=== PATIENT | female | born 1945 | race Caucasian/White ===

== ENCOUNTER 2016-09-26 13:02 | Day surgery (SDC) | payer MEDICARE ==
[~2016-09-26] VITALS: Ht 175.3 cm; Wt 81.8 kg
[~2016-09-26 13:02] MED LIST: COLA100C3 PO; ESCI10TA PO; METH4PAK PO; METR28.4 TOPICAL; MIRA50TA PO; MONT10TA4 PO; REST0.05 EACH EYE; TAMO20TA6 PO; XARE20TA PO; [UNRECOGNIZED DRUG - CODE]; [UNRECOGNIZED DRUG - OTHER] PO
[2016-09-26 13:29] VITALS: BP 124/67; PULSE 76; RESP 20; TEMP 98.5; O2SAT 96
[2016-09-26 13:30] VITALS: BP 124/67; PULSE 76; RESP 20; TEMP 98.5; O2SAT 96
[2016-09-26 17:00] VITALS: BP 116/70; PULSE 72; RESP 16; TEMP 98.4; O2SAT 99
[2016-09-26] MEDS ORDERED: IOHEXOL 350 MG/ML 50 ML BTL (for RAD DIAG) ONE (17:07)
--- NOTE | 2016-09-26 17:27 | PD.RAD ---
Post Procedure Progress Note Pre Procedure Diagnosis: (1) Uropathy, obstructive Post Procedure Diagnosis: (1) Uropathy, obstructive Procedure Date: Sep 26, 2016 Supervising Radiologist: Dilip Guillory Proceduralist/Assist: Virginie Haider, RT(R)(), Cordell Raymundo RT(R)() Anesthesia: Local Plan of Activity Patient to Unit: ROPU Patient Condition: Good See PACS Report for procedural detail/treatment Drainage Procedure Procedure 1 Imaging Guidance: Fluoroscopy Procedure Type: Nephrostomy Procedure: Reposition, Evaluation Findings: Tube slightly pulled back into lower pole collecting system but still in calyx. Sterilely prepped and advanced ~ 2cm then secured. Will place on 5-day course of Keflex for skin prophylaxis Dilip Guillory MD Sep 26, 2016 17:27
--- NOTE | 2016-09-27 18:04 | RADRPT ---
EXAM DATE/TIME: 09/26/2016 16:22 [facility] COMPARISON: No previous studies available for comparison. INDICATIONS : Patient with a history of hydronephrosis, needs tube evaluated. MEDICAL HISTORY : 1.Asthma 2.Ovarian cancer SURGICAL HISTORY : Cataracts Hysterectomy Appendectomy Exp. lap ENCOUNTER: Subsequent ACUITY: 1 month PAIN SCORE: 3/10 LOCATION: Right flank FLUORO TIME: 0.7 minutes CONTRAST: 10 cc Omnipaque (iohexol) 350 PROCEDURE : 1. Antegrade pyelogram. The risks, benefits and alternatives to the procedure were explained and verbal and written consent w as obtained. Under sterile conditions and using aseptic technique with fluoroscopic guidance the pat ient's existing nephrostomy tube was accessed. Contrast injection shows the tube to remain in the collecting system there was pulled back into the l ower pole moiety. The tube was extensively prepped before dancing slightly back into the central port ion of the collecting system. The [place] loop was actually advanced back into the upper pole moiety and secured to the skin surface with 2-0 silk suture after appropriate local anesthetic. CONCLUSION: Uncomplicated injection of indwelling nephrostomy tube. Tube was repositioned as detailed above. Dilip Guillory MD on September 27, 2016 at 17:58 Board Certified Radiologist. This report was verified electronically.
== END 2016-09-26 17:35 | disposition home or self-care (01) ==
LOC: HROP 13:02 → HRIP 13:03 → HROP 17:35
PROVIDERS: ATTEND Radiology Body Imaging
DX: N13.30 Unspecified hydronephrosis (principal); C56.9 Malignant neoplasm of unspecified ovary; J45.909 Unspecified asthma, uncomplicated
CPT/HCPCS: 50431; Q9967

== ENCOUNTER 2016-10-24 09:53 | Day surgery (SDC) | payer MEDICARE ==
[~2016-10-24] VITALS: Ht 175.3 cm; Wt 89.1 kg
[~2016-10-24 09:53] MED LIST changes: -METH4PAK PO; -TAMO20TA6 PO; -[UNRECOGNIZED DRUG - OTHER] PO
== END 2016-10-24 11:20 | disposition home or self-care (01) ==
LOC: HROP 09:53 → HRIP 09:54 → HROP 11:20
PROVIDERS: ATTEND Urology
DX: N13.30 Unspecified hydronephrosis (principal)
CPT/HCPCS: 99212; G0463

== ENCOUNTER 2016-11-06 11:00 | Day surgery (SDC) | payer MEDICARE ==
[2016-11-06 11:27] VITALS: BP 136/75; PULSE 76; RESP 20; TEMP 98.1; O2SAT 96
[2016-11-06] MEDS ORDERED: ALLE60TA PO (11:34)
== END 2016-11-06 11:50 | disposition home or self-care (01) ==
LOC: HROP 11:00 → HRIP 11:01 → HROP 11:50
PROVIDERS: ATTEND Radiology Body Imaging
DX: Z43.6 Encounter for attention to other artificial openings of urinary tract (principal)
CPT/HCPCS: 99211; G0463

== ENCOUNTER 2017-02-20 09:24 | Inpatient (IN) | payer MEDICARE ==
[~2017-02-20] VITALS: Ht 175.3 cm; Wt 93.6 kg
[~2017-02-20 09:24] MED LIST changes: -ALLE60TA PO; -COLA100C PO; -COLA100C3 PO; -DOXY50 PO; -LACTCAP8 PO; -LEVO1TAB50 PO; -XARE20TA PO; -[UNRECOGNIZED DRUG - CODE]
[2017-02-20] MEDS ORDERED: COLA100C PO (11:52)
[2017-02-20] MEDS ORDERED: LACTCAP8 PO (12:08)
[2017-02-20] MEDS ORDERED: LEVO1TAB50 PO (12:08)
[2017-02-20] MEDS ORDERED: DOXY50 PO (13:35)
[2017-03-09] VITALS (7 sets, daily range): BP systolic 100–121; BP diastolic 55–75; PULSE 65–82; RESP 16–18; TEMP 95.8–98.8; O2SAT 92–98
[2017-03-09] MEDS ORDERED: CHLORHEXIDINE GLUCONATE 2 % 1 PACK (2 CLOTHS) TOPICAL PRN (05:30)
[2017-03-09] MEDS ORDERED: INSULIN HUMAN REGULAR 1,000 UNITS/10 ML VIAL SQ PRN (05:30)
[2017-03-09] MEDS ORDERED: METOPROLOL TARTRATE 25 MG TAB PO PRN (05:30)
[2017-03-09] MEDS ORDERED: LACTATED RINGER'S 1000 ML IV PRN (05:30)
[2017-03-09] MEDS ORDERED: SODIUM CHLORID 0.9% 500 ML IV PRN (05:30)
[2017-03-09] MEDS ORDERED: POVIDONE IODINE 5% (ANTISEPSIS KIT) 4 APPLICATIONS EACH NARE PRN (05:30)
[2017-03-09] MEDS ORDERED: CHLORHEXIDINE GLUCONATE 4% SOLN 120 ML BTL TOPICAL SCH (05:45)
[2017-03-09] MEDS ORDERED: VANCOMYCIN 1000 MG/NS 250 ML (for <70 kg) IV SCH ×2 (05:45)
[2017-03-09] MEDS ORDERED: ceFAZolin 2 GM PREMIX 50 ML IV SCH (05:45)
[2017-03-09] MEDS ORDERED: POVIDONE IODINE 7.5% SCRUB 118 ML BOTTLE TOPICAL SCH (05:45)
[2017-03-09] MEDS ORDERED: BECL80AE3 INH (05:48)
[2017-03-09] MEDS ORDERED: FLUT1SPR5 EACH NARE (05:48)
[2017-03-09] MEDS ORDERED: ALIG4CAP PO (05:48)
[2017-03-09] MEDS ORDERED: ADVI200C3 PO (05:48)
[2017-03-09] MEDS ORDERED: GENTAMICIN SULFATE 80 MG/2 ML VIAL ONE (05:56)
[2017-03-09] MEDS ORDERED: FAMOTIDINE 20 MG/2 ML VIAL ONE (06:38)
[2017-03-09] MEDS ORDERED: ACETAMINOPHEN 1000 MG/100 ML VIAL IV ONE (06:38)
[2017-03-09] MEDS ORDERED: HYDR-3288 PO (06:54)
[2017-03-09] MEDS ORDERED: XARE10TA PO ×2 (06:54→07:01)
[2017-03-09] MEDS ORDERED: ENOX40P SQ (06:55)
[2017-03-09] MEDS ORDERED: ASPI81CH37 CHEW (06:56)
[2017-03-09] MEDS ORDERED: BISACODYL 10 MG SUPP RECTAL PRN (07:00)
[2017-03-09] MEDS ORDERED: EXPAREL PERI-ARTICULAR INJECTION (TOTAL VOL. 60 ML) P-ARTICULR SCH ×2 (07:00)
[2017-03-09] MEDS ORDERED: MORPHINE SULFATE 4 MG/ML INJ IV PUSH PRN (07:00)
[2017-03-09] MEDS ORDERED: ONDANSETRON HCL 4 MG/2 ML VIAL IVP PRN (07:00)
[2017-03-09] MEDS ORDERED: SODIUM CHLORIDE 0.9% IV SCH (07:00)
[2017-03-09] MEDS ORDERED: ZOLPIDEM TARTRATE 5 MG TAB PO PRN (07:00)
[2017-03-09] MEDS ORDERED: TRANEXAMIC ACID IV SCH (07:00)
[2017-03-09] MEDS ORDERED: diphenhydrAMINE HCL 50 MG/ML VIAL IV PRN (07:00)
[2017-03-09] MEDS ORDERED: TRANEXAMIC PERI-ARTICULAR 3,000 MG/NS 100 ML P-ARTICULR SCH ×2 (07:00)
[2017-03-09] MEDS ORDERED: SODIUM CHLORIDE 0.9% FLUSH 5 ML FLUSH IVF PRN (07:00)
[2017-03-09] MEDS ORDERED: Post-op Orders (for Pharmacy) MISC XX ONE (07:00)
[2017-03-09] MEDS ORDERED: ACETAMINOPHEN/HYDROcodone 325 MG/7.5 MG TAB PO PRN (07:00)
[2017-03-09] MEDS ORDERED: DEXAMETHASONE SOD PHOS 20 MG/5 ML VIAL IV SCH (07:00)
[2017-03-09] MEDS ORDERED: NALOXONE HCL 0.4 MG/ML AMP IV PRN (07:00)
--- NOTE | 2017-03-09 08:50 | RADRPT ---
EXAM DATE/TIME: 03/09/2017 07:18 [facility] COMPARISON: No previous studies available for comparison. INDICATIONS : Left total hip surgery. MEDICAL HISTORY : None. SURGICAL HISTORY : None. ENCOUNTER: Initial ACUITY: 1 day PAIN SCORE: Non-responsive. LOCATION: Left hip. FINDINGS: Patient is status post placement of a left hip prosthesis. There is good position and alignment of th e prosthesis and bony structures. The bony structures are grossly intact. Postsurgical changes are pr esent. CONCLUSION: Good position and alignment on this postoperative examination. Jatinder Galindo MD on March 09, 2017 at 8:47 Board Certified Radiologist. This report was verified electronically.
[2017-03-09] MEDS ORDERED: DO NOT ADM ANY ANTICOAGULANT DRUGS PRN (08:51)
[2017-03-09] MEDS: SODIUM CHLORIDE 0.9% FLUSH 5 ML FLUSH IVF SCH ×2 (09:00→20:37)
[2017-03-09] MEDS: BECLOMETHASONE DIPROPIONATE 80 MCG/ACT 8.7 GM INHALER INH SCH ×2 (09:00→20:38)
[2017-03-09] MEDS ORDERED: MYRBETRIQ 50 MG PO SCH (09:00)
[2017-03-09] MEDS ORDERED: MIDAZOLAM HCL 2 MG/2 ML VIAL ONE (09:05)
[2017-03-09] MEDS: SODIUM CHLOR 0.9% 1000 ML INJ 1,000 ML IV SCH ×2 (09:30→16:49)
--- NOTE | 2017-03-09 10:14 | RADRPT ---
EXAM DATE/TIME: 03/09/2017 09:35 [facility] COMPARISON: No previous studies available for comparison. INDICATIONS : Post op left total hip. MEDICAL HISTORY : Unobtainable. SURGICAL HISTORY : Unobtainable. ENCOUNTER: Subsequent ACUITY: 1 day PAIN SCORE: Non-responsive. LOCATION: Left hip FINDINGS: Patient is status post placement of a left hip prosthesis. There is good position and alignment of th e prosthesis and bony structures. The bony structures are grossly intact. Postsurgical changes are pr esent. CONCLUSION: Good position and alignment on this postoperative examination. Jatinder Galindo MD on March 09, 2017 at 10:11 Board Certified Radiologist. This report was verified electronically.
[2017-03-09] MEDS: ACETAMINOPHEN/HYDROcodone 325 MG/7.5 MG TAB PO PRN ×3 (11:39→20:39)
[2017-03-09] MEDS: ESCITALOPRAM OXALATE 10 MG TAB PO SCH (11:50)
[2017-03-09] MEDS ORDERED: PROPOFOL 200 MG/20 ML AMP IV ONE (12:00)
[2017-03-09] MEDS ORDERED: ONDANSETRON HCL 4 MG/2 ML VIAL IV PUSH ONE (12:00)
[2017-03-09] MEDS ORDERED: ALBUTEROL SULFATE 90 MCG/ACT HFA 18 GM INHALER INH PRN (12:30)
--- NOTE | 2017-03-09 12:37 | PD.CONS ---
HPI Service [facility] Consult Requested By Reason for Consult medical management Primary Care Physician Jean Junior MD Diagnoses: History of Present Illness patient is a 71 y/o female with history of osteoarthritis,ovarian cancer and PE underwent left total hip arthroplasty today. at the time of my evaluation she was resting comfortably with no distress. complaining of mild pain to the left hip. otherwise she denies any chest pain, sob or dizziness. Review of Systems Constitutional: DENIES: Fever, Weight loss, Chills, Night Sweats Eyes: DENIES: Blurred vision, Diplopia, Vision loss, Double Vision Ears, nose, mouth, throat: DENIES: Tinnitus, Vertigo, Throat pain, Epistaxis Respiratory: DENIES: Apneas, Cough, Snoring, Wheezing, Hemoptysis, Sputum production, Shortness of breath Cardiovascular: DENIES: Chest pain, Palpitations, Syncope, Dyspnea on Exertion , PND, Lower Extremity Edema, Orthopnea, Claudication Gastrointestinal: DENIES: Abdominal pain, Black stools, Bloody stools, Constipation, Diarrhea, Nausea, Vomiting, Difficulty Swallowing, Anorexia Genitourinary: DENIES: Urinary frequency, Urgency, Hematuria, Dysuria Musculoskeletal: COMPLAINS OF: Joint pain (left hip), DENIES: Muscle aches, Stiffness, Joint Swelling Integumentary: DENIES: Rash Neurologic: DENIES: Abnormal gait, Headache, Localized weakness, Paresthesias, Seizures, Speech Problems, Tremor, Poor Balance Psychiatric: DENIES: Anxiety, Confusion, Mood changes, Depression, Hallucinations, Agitation, Suicidal Ideation, Homicidal Ideation, Delusions Past Family Social History Allergies: Uncoded Allergies: ENVIRONMENTAL ALLERGIES (Allergy, Unknown, 02/20/17) Past Medical History ovarian cancer asthma PE Past Surgical History nephrostomy tube placement ureteral stent placement hysterectomy Reported Medications singulair qvar lexapro Active Ordered Medications Current Medications Lactated Ringer's 1,000 ml @ 30 mls/hr Q24H PRN IV SEE LABEL COMMENTS Last administered on 03/09/17t 05:50; Start 03/09/17 at 05:30; Stop 03/12/17 at 05:29 Sodium Chloride (NS 500 ml Inj) 500 ml @ 30 mls/hr [id number] PRN IV SEE LABEL COMMENTS; Start 03/09/17 at 05:30; Stop 03/12/17 at 05:29 Metoprolol Tartrate (Lopressor) 25 mg INSPECTOR HANDBAG FRAMES PRN PO SEE LABEL COMMENTS; Start 03/09/17 at 05:30; Stop 03/12/17 at 05:29 Povidone Iodine (Betadine 5% Antisepsis Kit) 1 applic INSPECTOR [employer] FRAMES PRN EACH NARE SEE LABEL COMMENTS Last administered on 03/09/17 05:45; Start 03/09/17 at 05:30; Stop 03/12/17 at 05:29 Chlorhexidine Gluconate (Chlorhexidine 2% Cloth) 3 pack [employer] FRAMES PRN TOPICAL SEE LABEL COMMENTS Last administered on 03/09/17 05:30; Start 03/09/17 at 05:30; Stop 03/12/17 at 05:29 Insulin Human Regular (NovoLIN R INJ) See Protocol Table ... INSPECTOR HANDB[employer] FRAMES PRN SQ SEE PROTOCOL TABLE; Start 03/09/17 at 05:30; Stop 03/12/17 at 05:29 Povidone Iodine (Betadine 7.5% Scrub) 1 applic ONCE TOPICAL ; Start 03/09/17 at 05:45; Stop 03/12/17 at 05:44 Chlorhexidine Gluconate 1 applic 1 applic ONCE TOPICAL ; Start 03/09/17 at 05:45 ; Stop 03/12/17 at 05:44 Cefazolin Sodium/ Dextrose 50 ml @ 100 mls/hr INS[employer]OR [employer] FRAMES IV Last administered on 03/09/17 06:02; Start 03/09/17 at 05:45; Stop 03/10/17 at 05:44 Vancomycin HCl 1000 mg/Sodium Chloride 250 ml @ 250 mls/hr INSPECTOR [employer] FRAMES IV Last administered on 03/09/17 06:03; Start 03/09/17 at 05:45; Stop 03/10/17 at 05:44 Tranexamic Acid 1404 mg/Sodium Chloride 114.04 ml @ 200 mls/ hr ONCE IV Last administered on 03/09/17 07:15; Start 03/09/17 at 07:00; Stop 03/09/17 at 13:00 Bupivacaine Liposome 20 ml/ Sodium Chloride 60 ml @ 120 mls/hr ONCE P-ARTICULR Last administered on 03/09/17 07:52; Start 03/09/17 at 07:00; Stop 03/09/17 at 13:00 Tranexamic Acid/ Sodium Chloride (Cyklokapron Inj/ NS Inj) 130 ml @ 260 mls/hr ONCE P-ARTICULR Last administered on 03/09/17 07:52; Start 03/09/17 at 07:00; Stop 03/09/17 at 13:00 Dexamethasone Sodium Phosphate (Decadron Inj) 10 mg [employer]OR [employer] FRAMES IV Last administered on 03/09/17 06:00; Start 03/09/17 at 07:00; Stop 03/10/17 at 06:59 Gentamicin Sulfate (Gentamicin Inj) 240 mg STK-MED ONCE .ROUTE Last administered on 03/09/17 07:32; Start 03/09/17 at 05:56; Stop 03/09/17 at 05:57; Status DC Acetaminophen (Ofirmev Inj) 1,000 mg STK-MED ONCE IV ; Start 03/09/17 at 06:38; Stop 03/09/17 at 06:39; Status DC Famotidine 20 mg 20 mg STK-MED ONCE .ROUTE ; Start 03/09/17 at 06:38; Stop at 06:39; Status DC Sodium Chloride (NS 1000 ml Inj) 1,000 ml @ 100 mls/hr Q10H IV Last administered on 03/09/17 09:30; Start 03/09/17 at 06:49 IV Flush (NS Flush) 2 ml UNSCH PRN IVF FLUSH AFTER USING IV ACCESS; Start at 07:00 IV Flush 2 ml 2 ml BID IVF ; Start 03/09/17 at 09:00 Cefazolin Sodium/ Sodium Chloride (Ancef Inj/NS Inj) 100 ml @ 200 mls/hr Q6H IV Last administered on 03/09/17 11:42; Start 03/09/17 at 12:00; Stop 03/10/17 at 00:29 Miscellaneous Information (Post-op Orders (for Pharmacy)) STAT ONCE XX ; Start 03/09/17 at 07:00; Stop 03/09/17 at 07:14; Status DC Rivaroxaban (Xarelto) 10 mg Q24H PO ; Start 03/10/17 at 08:00 Morphine Sulfate (Morphine Inj) 3 mg Q3H PRN IV PUSH Pain >7 when off [employer]SC[employer] DIRECTOR; Start 03/09/17 at 07:00 Acetaminophen/ Hydrocodone Bitart ([place] 7.5-325 Mg) 1 tab Q4H PRN PO PAIN LESS THAN 5 ON SCALE; Start 03/09/17 at 07:00 Acetaminophen/ Hydrocodone Bitart ([place] 7.5-325 Mg) 2 tab Q4H PRN PO PAIN SCALE 5 TO 10 Last administered on 03/09/17 11:39; Start 03/09/17 at 07:00 Multivitamins/ Minerals Therapeutic (Theragran M Tab) 1 tab BID PO ; Start at 21:00; Stop 05/09/17 at 20:59 Ondansetron HCl (Zofran Inj) 4 mg Q6H PRN IVP NAUSEA OR VOMITING; Start at 07:00 Docusate Sodium (Colace) 100 mg BID PO ; Start 03/10/17 at 21:00 Zolpidem Tartrate (Ambien) 5 mg HS PRN PO SLEEP; Start 03/09/17 at 07:00 Bisacodyl (Dulcolax Supp) 10 mg DAILY PRN RECTAL CONSTIPATION; Start 03/09/17 at 07:00 Naloxone HCl (Narcan Inj) 0.4 mg UNSCH PRN IV RESPIRATORY RATE LESS THAN 10; Start 03/09/17 at 07:00 Diphenhydramine HCl (Benadryl Inj) 25 mg Q6H PRN IV ITCHING; Start 03/09/17 at 07:00 Beclomethasone Dipropionate (Qvar 80 Mcg Inh) 1 puff BID INH ; Start 03/09/17 at 09:00 Escitalopram Oxalate (Lexapro) 10 mg DAILY PO Last administered on 03/09/17 11: 50; Start 03/09/17 at 09:00 Montelukast Sodium (Singulair) 10 mg HS PO ; Start 03/09/17 at 21:00 Patient Own Medication PT OWN MED: MYRBET... DAILY PO ; Start 03/09/17 at 09:00; Status Hold Miscellaneous Information ALL NURSING DEPARTME... UNSCH PRN .XX SEE LABEL COMMENTS; Start 03/09/17 at 08:51; Stop 03/10/17 at 08:50 Midazolam HCl (Versed Inj) 2 mg STK-MED ONCE .ROUTE ; Start 03/09/17 at 09:05; Stop 03/09/17 at 09:06; Status DC Family History hypertension in father. Social History no smoking or drinking. Physical Exam Vital Signs Vital Signs Date Time Temp Pulse Resp B/P Pulse Ox O2 Delivery O2 Flow Rate FiO2 03/09/17 11:30 95.8 67 17 115/66 98 03/09/17 10:25 97.5 67 16 120/65 98 Nasal Cannula 2 03/09/17 10:15 69 16 121/66 97 Nasal Cannula 2 03/09/17 10:00 68 15 123/67 96 Nasal Cannula 2 03/09/17 09:45 67 15 125/68 96 Nasal Cannula 2 03/09/17 09:30 69 14 128/69 95 Nasal Cannula 2 03/09/17 09:15 74 14 133/70 95 Nasal Cannula 2 03/09/17 09:00 97.6 78 13 136/72 100 Simple Mask 7 03/09/17 05:50 98.8 82 18 121/75 96 Physical Exam GENERAL: This is a well-nourished, well-developed patient, in no apparent distress. SKIN: No rashes, ecchymoses or lesions. Cool and dry. HEAD: Atraumatic. Normocephalic. No temporal or scalp tenderness. EYES: Pupils equal round and reactive. Extraocular motions intact. No scleral icterus. No injection or drainage. ENT: Nose without bleeding, purulent drainage or septal hematoma. Throat without erythema, tonsillar hypertrophy or exudate. Uvula midline. Airway patent. NECK: Trachea midline. No JVD or lymphadenopathy. Supple, nontender, no meningeal signs. CARDIOVASCULAR: Regular rate and rhythm without murmurs, gallops, or rubs. RESPIRATORY: Clear to auscultation. Breath sounds equal bilaterally. No wheezes , rales, or rhonchi. GASTROINTESTINAL: Abdomen soft, non-tender, nondistended. No hepato-splenomegaly , or palpable masses. No guarding. MUSCULOSKELETAL: Extremities without clubbing, cyanosis, or edema. No joint tenderness, effusion, or edema noted. No calf tenderness. Negative Homans sign bilaterally. NEUROLOGICAL: Awake and alert. Cranial nerves II through XII intact. Motor and sensory grossly within normal limits. Five out of 5 muscle strength in all muscle groups. Normal speech. Laboratory Laboratory Tests Test 03/09/17 05:45 Blood Type A POSITIVE Antibody Screen NEGATIVE Imaging Last Impressions Hip and Pelvis X-Ray 03/09/17 0649 Signed Impressions: Service Date/Time: Thursday, March 09, 2017 09:35 - CONCLUSION: Good position and alignment on this postoperative examination. Jatinder Galindo MD Hip X-Ray 03/09/17 0000 Signed Impressions: Service Date/Time: Thursday, March 09, 2017 07:18 - CONCLUSION: Good position and alignment on this postoperative examination. Jatinder Galindo MD Assessment and Plan Assessment and Plan A/P - osteoarthritis of the left hip- s/p left total hip arthroplasty continue with pain control - PT evaluation- management per ortho. -history of PE- was on Xarelto till a month ago when it was discontinued. -history of asthma- resume home meds- albuterol as needed. -history of ovarian cancer- f/u as outpatient -DVT prophylaxis- on Xarelto- per ortho thank you for the consult. Discussed Condition With the patient. Rober Ozuna MD Mar 09, 2017 12:37
--- NOTE | 2017-03-09 13:11 | PD.ORT.PN ---
Objective Vitals Vital Signs Date Time Temp Pulse Resp B/P Pulse Ox O2 Delivery O2 Flow Rate FiO2 03/09/17 11:30 95.8 67 17 115/66 98 03/09/17 10:25 97.5 67 16 120/65 98 Nasal Cannula 2 03/09/17 10:15 69 16 121/66 97 Nasal Cannula 2 03/09/17 10:00 68 15 123/67 96 Nasal Cannula 2 03/09/17 09:45 67 15 125/68 96 Nasal Cannula 2 03/09/17 09:30 69 14 128/69 95 Nasal Cannula 2 03/09/17 09:15 74 14 133/70 95 Nasal Cannula 2 03/09/17 09:00 97.6 78 13 136/72 100 Simple Mask 7 03/09/17 05:50 98.8 82 18 121/75 96 I/O 03/08/17 03/08/17 03/08/17 03/09/17 03/09/17 03/09/17 07:00 15:00 23:00 07:00 15:00 23:00 Intake Total 800 ml Output Total 700 ml Balance 100 ml Intake IV Total 100 ml Other 700 ml Output Urine Total 400 ml Estimated Blood Loss 300 ml Imaging Last 24 hours Impressions Hip and Pelvis X-Ray 03/09/17 0649 Signed Impressions: Service Date/Time: Thursday, March 09, 2017 09:35 - CONCLUSION: Good position and alignment on this postoperative examination. Jatinder Galindo MD Hip X-Ray 03/09/17 0000 Signed Impressions: Service Date/Time: Thursday, March 09, 2017 07:18 - CONCLUSION: Good position and alignment on this postoperative examination. Jatinder Galindo MD Assessment & Plan Ortho Post Op Day #: 0 Problem List: Assessment and Plan s/p L ALVA anterior approach wbat daily dressing changes xarelto d/c planning home vs snf f/up dr manuel 2 weeks Andrew Caraballo Mar 09, 2017 13:11
--- NOTE | 2017-03-09 13:29 | HHI.DCPOC ---
Discharge Care Plan Diagnosis: (1) Primary localized osteoarthrosis, pelvic region and thigh Your Health Problems Are: Difficulty with ADL Goals to Promote Your Health * To prevent worsening of your condition and complications * To maintain your health at the optimal level Directions to Meet Your Goals Take your medications as prescribed Follow your dietary instruction Follow activity as directed Keep your appointments as scheduled Take your immunizations and boosters as scheduled If your symptoms worsen call your PCP, if no PCP go to Urgent Care Center or Emergency Room Smoking is Dangerous to Your Health. Avoid second hand smoke Call the 24-hour hour crisis hotline for domestic abuse at Andrew Caraballo Mar 09, 2017 13:29
--- NOTE | 2017-03-09 13:30 | HHI.FF ---
Face to Face Verification Diagnosis: (1) Primary localized osteoarthrosis, pelvic region and thigh Physical Therapy Gait training, Safety evaluation, Transfer training, bed to chair Hip: Total hip, Protocol: Left, Progress to weight bearing Left LE Weight Bearing: WB as tolerated Nursing RN: 3 days/week x 2 weeks Nursing: Dressing changes Dressing Changes: Daily dressing change I have seen patient Breann Willett on 03/09/17. My clinical findings support the need for the requested home health care services because: Limited ability to care for self High risk of falls I certify that my clinical findings support that this patient is homebound because: Post-op weakness Unsteady gait/balance Andrew Caraballo Mar 09, 2017 13:30
[2017-03-09] MEDS ORDERED: WALKER WHEELS/F1 MIS (13:31)
--- NOTE | 2017-03-09 14:50 | MP ---
cc: ANTONIO LOUIE Corrected Copy: 03/13/17 DATE OF SURGERY: 03/09/2017 PREOPERATIVE DIAGNOSIS Left hip osteoarthritis. POSTOPERATIVE DIAGNOSES Left hip osteoarthritis. PROCEDURE Left total hip arthroplasty. SURGEON Dr. Antonio Louie. [place] M[employer]ER OPERATOR KRISTI Barnett ANESTHESIA General. ESTIMATED BLOOD LOSS 200 ccs. COMPLICATIONS None. IMPLANTS USED DePuy Corail size 15 Press-Fit standard offset femoral stem, size 50 solid pinnacle Gription cup, size 32 mm highly cross-linked neutral polyethylene liner, size 32 mm ceramic head, +5 neck. JUSTIFICATION This patient is a 71-year-old female with history of severe end-stage osteoarthritis involving the left hip. She has severe disabling pain with standing, walking, ambulation, weight-bear activities, even severe pain at rest. She has failed greater than 3 months of nonoperative conservative treatment to include medication, therapy, ambulatory assisted aids, home exercise program, activity modification, weight loss. X-rays of the left hip reveal severe end-stage osteoarthritis, [id number] joint space narrowing, subchondral sclerosis, subchondral cyst, osteophyte formation and associated subluxation. The patient was counseled as to the risks, benefits and alternatives to a total hip arthroplasty. The risks were discussed which include but not limited to anesthesia, bleeding, infection, damage to nerves, blood vessels, pain, stiffness, fracture-dislocation, leg length discrepancies, blood clots, pulmonary embolism, even . The patient's pain is severe, she favored the benefits over the risks and did wish to proceed with surgery. PROCEDURE IN DETAIL A written consent was obtained. The patient was identified by name, taken to the operating room and placed supine on the operating table. General anesthesia was administered as well as 2 grams of IV Ancef and 1 gram of IV vancomycin. The left and right feet were placed in padded traction boots. The left hip and left lower extremity was prepped and draped using isopropyl alcohol, Hibiclens solution and Chloraprep solution. After time-out was performed a longitudinal incision was made over the anterolateral aspect of the left hip. The fascial layer was incised. Dissection was carried over tensor fascia mee beneath the rectus femoris to allow exposure of the anterior hip capsule. A capsulotomy incision was performed. Oscillating saw was used to perform a femoral neck cut. The osteoarthritic femoral head and neck component was removed. The 10 blade scalpel was used to excise the labrum. Sequential reaming began at size 45 mm. This was carried through size 50 and subsequently a solid pinnacle Gription cup was implanted in approximately 45 degrees of abduction and 10 degrees of anteversion. There is good purchase and fixation after insertion of the cup. The patient did have significant osteoporosis of bone. A screw hole eliminator was placed followed by the neutral liner. The liner was impacted in place and tested for stability. Attention was turned to the femur where the leg was externally rotated, extended and adducted. A box cutting osteotome was used to gain entrance into the intramedullary canal of the femur. This was followed by canal finder, sequential broaching up to size 15. A calcar planer was used to plane the calcar. Trial head and neck combinations were evaluated and final components implanted, with current components, the leg could achieve external rotation of 70 degrees and extension all the way down to the ground without evidence of anterior instability or impingement. Fluoroscopic imaging showed appropriate implantation of components. Surgical wound was thoroughly irrigated with sterile saline pulse lavage antibiotic impregnated solution. The fascial layer was closed with #1 Vicryl suture, subcutaneous layer with 2-0 Vicryl suture, skin was closed with Dermabond. Sterile dressing was applied. The patient tolerated the procedure well with no intraoperative complications noted. Claus Caraballo, physician assistant scientist certified was present during the entire procedure to include patient positioning, the procedure itself. The medical necessity of physician assistant scientist was indicated in this case due to the complexity of the procedure. He assisted with appropriate manipulation of the leg and also retraction of muscle, tendon, bone, neurovascular structures. He assisted with both preparation of bone and also implantation of the prosthetic replacement. MD MAYLIN Granados/CAROL /8:40 AM /12:14 PM
[2017-03-09] MEDS: DOCUSATE SODIUM 100 MG CAP PO SCH (20:36)
[2017-03-09] MEDS: SENNOSIDES 8.6 MG TAB PO SCH (20:37)
[2017-03-09] MEDS: MONTELUKAST SODIUM 10 MG TAB PO SCH (20:37)
[2017-03-10] VITALS (10 sets, daily range): BP systolic 99–132; BP diastolic 51–65; PULSE 68–86; RESP 16–18; TEMP 97.3–99.4; O2SAT 93–97
[2017-03-10] MEDS: SODIUM CHLOR 0.9% 1000 ML INJ 1,000 ML IV SCH ×3 (02:49→22:04)
[2017-03-10] MEDS: ACETAMINOPHEN/HYDROcodone 325 MG/7.5 MG TAB PO PRN ×5 (04:18→22:03)
[2017-03-10 05:45] LABS: HEMATOCRIT 25.7 % (35.0-46.0); MEAN CELL VOLUME 85.2 FL (80.0-100.0); MEAN CORPUSCULAR HEMOGLOBIN 27.9 PG (27.0-34.0); MEAN CORPUSCULAR HGB CONC 32.7 % (32.0-36.0); PLATELET COUNT 136 TH/MM3 (150-450); RED BLOOD COUNT 3.02 MIL/MM3 (4.00-5.30); RED CELL DISTRIBUTION WIDTH 17.2 % (11.6-17.2); REVIEW FLAG FINAL; WHITE BLOOD COUNT 6.2 TH/MM3 (4.0-11.0)
[2017-03-10] MEDS: SODIUM CHLORIDE 0.9% FLUSH 5 ML FLUSH IVF SCH ×2 (09:00→21:00)
[2017-03-10] MEDS: BECLOMETHASONE DIPROPIONATE 80 MCG/ACT 8.7 GM INHALER INH SCH ×2 (09:00→21:00)
[2017-03-10] MEDS: ESCITALOPRAM OXALATE 10 MG TAB PO SCH (09:28)
[2017-03-10] MEDS: DOCUSATE SODIUM 100 MG CAP PO SCH ×2 (09:28→21:11)
[2017-03-10] MEDS: RIVAROXABAN 10 MG TAB PO SCH (09:29)
[2017-03-10] MEDS: POLYETHYLENE GLYCOL 17 GM PKG PO SCH (09:30)
--- NOTE | 2017-03-10 11:05 | PD.ORT.PN ---
Subjective Subjective Remarks Patient comfortable. Pain controlled. Spouse at bedside. Patient states she was unable to participate with PT due to dizziness. Objective Vitals Vital Signs Date Time Temp Pulse Resp B/P Pulse Ox O2 Delivery O2 Flow Rate FiO2 03/10/17 08:36 96 21 03/10/17 08:00 97.7 86 18 104/63 96 03/10/17 03:51 98.0 72 16 104/59 97 03/10/17 00:01 97.4 70 17 99/54 97 03/09/17 21:57 98 21 03/09/17 21:52 92 Nasal Cannula 2.00 03/09/17 20:06 97.2 71 16 100/55 95 03/09/17 16:00 96.0 65 17 103/64 96 03/09/17 13:56 94 Nasal Cannula 2.00 03/09/17 11:30 95.8 67 17 115/66 98 I/O 03/09/17 03/09/17 03/09/17 03/10/17 03/10/17 03/10/17 07:00 15:00 23:00 07:00 15:00 23:00 Intake Total 1400 ml 720 ml 480 ml Output Total 1350 ml 400 ml 400 ml Balance 50 ml 320 ml 80 ml Intake Oral 600 ml 720 ml 480 ml IV Total 100 ml Other 700 ml Output Urine Total 1050 ml 400 ml 400 ml Estimated Blood Loss 300 ml # Bowel Movements 0 Result Diagram: 03/10/17 0505 Imaging Last 24 hours Impressions Hip and Pelvis X-Ray 03/09/17 0649 Signed Impressions: Service Date/Time: Thursday, March 09, 2017 09:35 - CONCLUSION: Good position and alignment on this postoperative examination. Jatinder Galindo MD Hip X-Ray 03/09/17 0000 Signed Impressions: Service Date/Time: Thursday, March 09, 2017 07:18 - CONCLUSION: Good position and alignment on this postoperative examination. Jatinder Galindo MD Objective Remarks Left hip dressing C/D/I calves soft negative Carina's NVI Assessment & Plan Assessment and Plan s/p L ALVA anterior approach POD #1 wbat daily dressing changes xarelto d/c planning home vs snf (pt requesting to go home with [facility]) f/up dr manuel 2 weeks Diego Newton Mar 10, 2017 11:05
--- NOTE | 2017-03-10 15:59 | HHI.PR ---
Subjective Subjective Remarks ambulating with PT having pain but otherwise participating with PT dizzy earlier, better now no cp no sob no fever Review of Systems Constitutional Constitutional Remarks 12 point ros completed, negative except as noted above Vitals/Results Intake & Output 03/09/17 03/09/17 03/10/17 15:00 23:00 07:00 Intake Total 1400 ml 720 ml 480 ml Output Total 1350 ml 400 ml 400 ml Balance 50 ml 320 ml 80 ml Intake Oral 600 ml 720 ml 480 ml IV Total 100 ml Other 700 ml Output Urine Total 1050 ml 400 ml 400 ml Estimated Blood Loss 300 ml # Bowel Movements 0 Vital Signs Vital Signs Date Time Temp Pulse Resp B/P Pulse Ox O2 Delivery O2 Flow Rate FiO2 03/10/17 14:16 97 Room Air 03/10/17 14:16 98.5 03/10/17 12:00 98.1 68 18 117/60 97 03/10/17 08:36 96 21 03/10/17 08:00 97.7 86 18 104/63 96 03/10/17 03:51 98.0 72 16 104/59 97 03/10/17 00:01 97.4 70 17 99/54 97 03/09/17 21:57 98 21 03/09/17 21:52 92 Nasal Cannula 2.00 03/09/17 20:06 97.2 71 16 100/55 95 03/09/17 16:00 96.0 65 17 103/64 96 CBC/BMP: 03/10/17 0505 Lab Results Laboratory Tests Test 03/10/17 05:05 White Blood Count 6.2 TH/MM3 Red Blood Count 3.02 MIL/MM3 Hemoglobin 8.4 GM/DL Hematocrit 25.7 % Mean Corpuscular Volume 85.2 FL Mean Corpuscular Hemoglobin 27.9 PG Mean Corpuscular Hemoglobin 32.7 % Concent Red Cell Distribution Width 17.2 % Platelet Count 136 TH/MM3 Mean Platelet Volume 9.6 FL Physical Exam General General Appearance: Well Developed, Well Nourished, No Acute Distress, Comfortable Eyes Eye Exam: Pupils Equal, Pupils Reactive Ears & Nose Ears & Nose Exam: Nasal Mucosa [place] Throat Throat Exam: Oral Mucosa [place] & Moist Neck Neck Exam: Neck Supple, Trachea Midline Pulmonary Resp Exam: Clear Bilaterally, No Distress Cardiology CV Exam: Regular Gastrointestinal/Abdomen GI Exam: Soft, Non-Tender, Bowel Sounds Present, Non-Distended Musculoskeletal MS Remarks left hip dressing D/I Integumentary Skin Exam: Warm, Dry Extremeties Extremities Exam: No Edema, Pedal Pulses Palpable Neurologic Neuro Exam: Alert, Awake, Oriented, Speech Clear, Shipping Track Supervisor Equal Psychiatric Psych Exam: Appropriate Responses VTE Prophylaxis VTE Remarks xarelto Assessment/Plan Assessment/Plan OA, s/p left total hip arthroplasty Hx on PE was on Xarelto Hx Asthma hx ovarian cancer Plan Continue postoperative orthopedic care Xarelto for DVT prophylaxis H&H stable Albuterol inhaler as needed For DVT prophylaxis, continue with Xarelto Hemoglobin 8.4, repeat CBC in the morning continue with PT CM dc planning, going home with [facility] and PT Bowel regimen Discussed with her and Discussed with patient Discussed with Dr. Klein This patient was seen by myself and Dr. Klein, this note is written on his behalf Adelaide Howell Mar 10, 2017 15:59
[2017-03-10] MEDS: MULTIVITAMINS/MINERALS THERAPEUTIC TAB PO SCH (21:11)
[2017-03-10] MEDS: SENNOSIDES 8.6 MG TAB PO SCH (21:11)
[2017-03-10] MEDS: MONTELUKAST SODIUM 10 MG TAB PO SCH (21:12)
[2017-03-11] VITALS (9 sets, daily range): BP systolic 96–144; BP diastolic 51–67; PULSE 69–88; RESP 16–20; TEMP 96.3–99.9; O2SAT 92–97
[2017-03-11] MEDS: ACETAMINOPHEN/HYDROcodone 325 MG/7.5 MG TAB PO PRN ×3 (02:37→20:53)
[2017-03-11] MEDS: MAGNESIUM HYDROXIDE SUSP 30 ML CUP PO PRN (05:58)
--- NOTE | 2017-03-11 08:09 | PD.ORT.PN ---
Subjective Post Op Day #: 2 Subjective Remarks pain under control. denies dizziness since yesterday morning. Objective Vitals Vital Signs Date Time Temp Pulse Resp B/P Pulse Ox O2 Delivery O2 Flow Rate FiO2 03/11/17 03:55 99.1 71 16 127/58 95 03/11/17 00:00 99.9 82 16 105/51 94 03/10/17 20:00 99.4 81 17 104/51 95 03/10/17 18:13 97 21 03/10/17 16:00 98.1 75 18 113/54 93 03/10/17 14:16 97 Room Air 03/10/17 14:16 98.5 03/10/17 12:00 98.1 68 18 117/60 97 03/10/17 08:36 96 21 I/O 03/10/17 03/10/17 03/10/17 03/11/17 03/11/17 03/11/17 07:00 15:00 23:00 07:00 15:00 23:00 Intake Total 480 ml 2200 ml 480 ml 480 ml Output Total 400 ml 300 ml Balance 80 ml 1900 ml 480 ml 480 ml Intake Oral 480 ml 600 ml 480 ml 480 ml IV Total 1600 ml Output Urine Total 400 ml 300 ml # Voids 1 2 2 # Bowel Movements 0 Result Diagram: 03/10/17 0505 Imaging Last 24 hours Impressions Hip and Pelvis X-Ray 03/09/17 0649 Signed Impressions: Service Date/Time: Thursday, March 09, 2017 09:35 - CONCLUSION: Good position and alignment on this postoperative examination. Jatinder Galindo MD Hip X-Ray 03/09/17 0000 Signed Impressions: Service Date/Time: Thursday, March 09, 2017 07:18 - CONCLUSION: Good position and alignment on this postoperative examination. Jatinder Galindo MD Objective Remarks in bed, nad incision no erythema, no drainage calves soft negative Carina's NVI Assessment & Plan Ortho Post Op Day #: 2 Problem List: Assessment and Plan s/p L ALVA anterior approach POD #2 wbat daily dressing changes xarelto d/c planning home with [facility] and pt - cleared today if H&H remains stable and pain under control after PT rx in chart f/up dr manuel 2 weeks Andrew Caraballo Mar 11, 2017 08:09
[2017-03-11] MEDS: SODIUM CHLOR 0.9% 1000 ML INJ 1,000 ML IV SCH ×2 (08:49→18:49)
[2017-03-11] MEDS: SODIUM CHLORIDE 0.9% FLUSH 5 ML FLUSH IVF SCH (09:00)
[2017-03-11] MEDS: BECLOMETHASONE DIPROPIONATE 80 MCG/ACT 8.7 GM INHALER INH SCH ×2 (09:00→20:45)
[2017-03-11] MEDS: POLYETHYLENE GLYCOL 17 GM PKG PO SCH (09:15)
[2017-03-11] MEDS: RIVAROXABAN 10 MG TAB PO SCH (09:15)
[2017-03-11] MEDS: DOCUSATE SODIUM 100 MG CAP PO SCH ×2 (09:15→20:45)
[2017-03-11] MEDS: MULTIVITAMINS/MINERALS THERAPEUTIC TAB PO SCH ×2 (09:15→20:45)
[2017-03-11] MEDS: ESCITALOPRAM OXALATE 10 MG TAB PO SCH (09:15)
[2017-03-11] MEDS: PSYLLIUM FIBER SF/GF 6 GM POWD PKT PO SCH (09:16)
[2017-03-11 10:02] LABS: BASOPHIL % 0.4 % (0.0-2.0); EOSINOPHIL # 0.1 TH/MM3 (0-0.4); HEMO FLAGS DIFF FINAL; LYMPH % 15.7 % (9.0-44.0); LYMPHOCYTE # 1.1 TH/MM3 (1.0-4.8); MEAN CELL VOLUME 84.1 FL (80.0-100.0); MEAN CORPUSCULAR HEMOGLOBIN 28.2 PG (27.0-34.0); MEAN CORPUSCULAR HGB CONC 33.6 % (32.0-36.0); MONO % 8.6 % (0.0-8.0); NEUT % 73.3 % (16.0-70.0); PLATELET COUNT 155 TH/MM3 (150-450); RED BLOOD COUNT 3.21 MIL/MM3 (4.00-5.30); RED CELL DISTRIBUTION WIDTH 17.2 % (11.6-17.2); WHITE BLOOD COUNT 6.8 TH/MM3 (4.0-11.0)
[2017-03-11 10:31] LABS: BICARBONATE 24.4 MEQ/L (21.0-32.0); MAGNESIUM 1.6 MG/DL (1.5-2.5); POTASSIUM 3.1 MEQ/L (3.5-5.1)
[2017-03-11] MEDS ORDERED: COMMODE 3-IN-11 MIS (11:15)
--- NOTE | 2017-03-11 20:27 | HHI.PR ---
Subjective Interval History Alert, oriented, vomited one time today, denies complaints otherwise, seen in the presence of daughter Review of Systems Constitutional Constitutional Remarks Mild left hip pain, 10 systems reviewed and otherwise negative Vitals/Results Intake & Output 03/10/17 03/10/17 03/11/17 15:00 23:00 07:00 Intake Total 2200 ml 480 ml 480 ml Output Total 300 ml Balance 1900 ml 480 ml 480 ml Intake Oral 600 ml 480 ml 480 ml IV Total 1600 ml Output Urine Total 300 ml # Voids 1 2 2 # Bowel Movements 0 Vital Signs Vital Signs Date Time Temp Pulse Resp B/P Pulse Ox O2 Delivery O2 Flow Rate FiO2 03/11/17 16:30 96.3 77 16 102/59 94 03/11/17 12:50 103/55 03/11/17 12:30 97.7 69 20 96/51 93 03/11/17 09:10 Room Air 03/11/17 08:46 95 21 03/11/17 08:00 98.5 81 20 109/56 92 03/11/17 03:55 99.1 71 16 127/58 95 03/11/17 00:00 99.9 82 16 105/51 94 CBC/BMP: 03/11/17 0900 03/11/17 0900 Lab Results Laboratory Tests Test 03/11/17 09:00 White Blood Count 6.8 TH/MM3 Red Blood Count 3.21 MIL/MM3 Hemoglobin 9.1 GM/DL Hematocrit 27.0 % Mean Corpuscular Volume 84.1 FL Mean Corpuscular Hemoglobin 28.2 PG Mean Corpuscular Hemoglobin 33.6 % Concent Red Cell Distribution Width 17.2 % Platelet Count 155 TH/MM3 Mean Platelet Volume 9.3 FL Neutrophils (%) (Auto) 73.3 % Lymphocytes (%) (Auto) 15.7 % Monocytes (%) (Auto) 8.6 % Eosinophils (%) (Auto) 2.0 % Basophils (%) (Auto) 0.4 % Neutrophils # (Auto) 5.0 TH/MM3 Lymphocytes # (Auto) 1.1 TH/MM3 Monocytes # (Auto) 0.6 TH/MM3 Eosinophils # (Auto) 0.1 TH/MM3 Basophils # (Auto) 0.0 TH/MM3 CBC Comment DIFF FINAL Differential Comment Sodium Level 137 MEQ/L Potassium Level 3.1 MEQ/L Chloride Level 101 MEQ/L Carbon Dioxide Level 24.4 MEQ/L Anion Gap 12 MEQ/L Blood Urea Nitrogen 13 MG/DL Creatinine 0.78 MG/DL Estimat Glomerular Filtration 73 ML/MIN Rate Random Glucose 91 MG/DL Calcium Level 8.4 MG/DL Phosphorus Level 2.7 MG/DL Magnesium Level 1.6 MG/DL Physical Exam General General Appearance: Well Developed, Well Nourished, No Acute Distress, Comfortable Eyes Eye Exam: Pupils Equal, Pupils Reactive Ears & Nose Ears & Nose Exam: Nasal Mucosa [place] Th[place]at Throat Exam: Oral Mucosa [place] & Moist Neck Neck Exam: Neck Supple, Trachea Midline Pulmonary Resp Exam: Clear Bilaterally, No Distress Cardiology CV Exam: Regular Gastrointestinal/Abdomen GI Exam: Soft, Non-Tender, Bowel Sounds Present, Non-Distended Musculoskeletal MS Remarks Left lower extremity in clean dry dressing Integumentary Skin Exam: Warm, Dry Extremeties Extremities Exam: No Edema, Pedal Pulses Palpable Neurologic Neuro Exam: Alert, Awake, Oriented, Speech Clear, Associate Doctor Equal Psychiatric Psych Exam: Appropriate Responses Assessment/Plan Assessment/Plan Assessment End-stage left hip osteoarthritis s/p left total hip arthroplasty this admission Vomited once this morning Hypokalemia Hx on PE was on Xarelto Hx Asthma hx ovarian cancer History of bladder spasm, not active at this time Plan Pain control Physical therapy Nausea control Replace potassium Wound care per orthopedics Bowel regimen Follow electrolytes and replace as needed Follow hemoglobin and keep above 8 Discussed with patient and her daughter Discussed with nurse Discussed Condition with: Patient, Daughter Anthony Klein MD Mar 11, 2017 20:27
[2017-03-11] MEDS: SENNOSIDES 8.6 MG TAB PO SCH (20:45)
[2017-03-11] MEDS: MONTELUKAST SODIUM 10 MG TAB PO SCH (20:45)
[2017-03-12 03:39] VITALS: BP 109/62; PULSE 72; RESP 18; TEMP 97.5; O2SAT 95
[2017-03-12] MEDS: SODIUM CHLOR 0.9% 1000 ML INJ 1,000 ML IV SCH (04:49)
[2017-03-12] MEDS: POTASSIUM CHLORIDE 20 MEQ CONTROLLED RELEASE TAB PO SCH ×2 (06:37→08:44)
[2017-03-12] MEDS: ACETAMINOPHEN/HYDROcodone 325 MG/7.5 MG TAB PO PRN ×2 (06:38→14:02)
[2017-03-12] MEDS: MAGNESIUM HYDROXIDE SUSP 30 ML CUP PO PRN (06:41)
[2017-03-12 07:15] LABS: MEAN CELL VOLUME 84.2 FL (80.0-100.0); MEAN CORPUSCULAR HEMOGLOBIN 28.1 PG (27.0-34.0); MEAN CORPUSCULAR HGB CONC 33.4 % (32.0-36.0); PLATELET COUNT 142 TH/MM3 (150-450); RED BLOOD COUNT 2.97 MIL/MM3 (4.00-5.30); RED CELL DISTRIBUTION WIDTH 17.3 % (11.6-17.2); REVIEW FLAG FINAL; WHITE BLOOD COUNT 6.2 TH/MM3 (4.0-11.0)
[2017-03-12 07:33] LABS: BICARBONATE 29.8 MEQ/L (21.0-32.0); POTASSIUM 3.7 MEQ/L (3.5-5.1)
--- NOTE | 2017-03-12 07:44 | PD.ORT.PN ---
Subjective Post Op Day #: 3 Subjective Remarks pain under control. feeling better. Objective Vitals Vital Signs Date Time Temp Pulse Resp B/P Pulse Ox O2 Delivery O2 Flow Rate FiO2 03/12/17 03:39 97.5 72 18 109/62 95 03/11/17 23:34 98.5 88 17 144/67 97 03/11/17 19:10 98.9 77 18 124/66 95 03/11/17 16:30 96.3 77 16 102/59 94 03/11/17 12:50 103/55 03/11/17 12:30 97.7 69 20 96/51 93 03/11/17 09:10 Room Air 03/11/17 08:46 95 21 03/11/17 08:00 98.5 81 20 109/56 92 I/O 03/11/17 03/11/17 03/11/17 03/12/17 03/12/17 03/12/17 07:00 15:00 23:00 07:00 15:00 23:00 Intake Total 480 ml 440 ml 480 ml 480 ml Balance 480 ml 440 ml 480 ml 480 ml Intake Oral 480 ml 440 ml 480 ml 480 ml # Voids 2 3 2 2 # Bowel Movements 0 0 0 Result Diagram: 03/12/17 0600 03/12/17 0600 Imaging Last 24 hours Impressions Hip and Pelvis X-Ray 03/09/17 0649 Signed Impressions: Service Date/Time: Thursday, March 09, 2017 09:35 - CONCLUSION: Good position and alignment on this postoperative examination. Jatinder Galindo MD Hip X-Ray 03/09/17 0000 Signed Impressions: Service Date/Time: Thursday, March 09, 2017 07:18 - CONCLUSION: Good position and alignment on this postoperative examination. Jatinder Galindo MD Objective Remarks in bed, nad dressing c/d/i calves soft negative Carina's NVI Assessment & Plan Ortho Post Op Day #: 3 Problem List: Assessment and Plan s/p L ALVA anterior approach POD #3 wbat daily dressing changes xarelto d/c planning home with [facility] and pt - cleared today rx in chart f/up dr manuel 2 weeks Andrew Caraballo Mar 12, 2017 07:44
[2017-03-12 08:00] VITALS: BP 103/56; PULSE 73; RESP 16; TEMP 97.8; O2SAT 95
[2017-03-12] MEDS: RIVAROXABAN 10 MG TAB PO SCH (08:44)
[2017-03-12] MEDS: ESCITALOPRAM OXALATE 10 MG TAB PO SCH (08:44)
[2017-03-12] MEDS: POLYETHYLENE GLYCOL 17 GM PKG PO SCH (08:45)
[2017-03-12] MEDS: DOCUSATE SODIUM 100 MG CAP PO SCH (08:45)
[2017-03-12] MEDS: MULTIVITAMINS/MINERALS THERAPEUTIC TAB PO SCH (08:45)
[2017-03-12] MEDS: BECLOMETHASONE DIPROPIONATE 80 MCG/ACT 8.7 GM INHALER INH SCH (08:52)
[2017-03-12] MEDS: SODIUM CHLORIDE 0.9% FLUSH 5 ML FLUSH IVF SCH (08:53)
[2017-03-12] MEDS: PSYLLIUM FIBER SF/GF 6 GM POWD PKT PO SCH (08:54)
--- NOTE | 2017-03-12 11:31 | HHI.PR ---
Subjective Interval History Sleepy, arousable, she had a complain of lightheadedness when standing, pain is well controlled, eating without problems Review of Systems Constitutional Constitutional Remarks Lightheadedness when standing, 10 systems reviewed and otherwise negative Vitals/Results Intake & Output 03/11/17 03/11/17 03/12/17 15:00 23:00 07:00 Intake Total 440 ml 480 ml 480 ml Balance 440 ml 480 ml 480 ml Intake Oral 440 ml 480 ml 480 ml # Voids 3 2 2 # Bowel Movements 0 0 0 Vital Signs Vital Signs Date Time Temp Pulse Resp B/P Pulse Ox O2 Delivery O2 Flow Rate FiO2 03/12/17 03:39 97.5 72 18 109/62 95 03/11/17 23:34 98.5 88 17 144/67 97 03/11/17 19:10 98.9 77 18 124/66 95 03/11/17 16:30 96.3 77 16 102/59 94 03/11/17 12:50 103/55 03/11/17 12:30 97.7 69 20 96/51 93 CBC/BMP: 03/12/17 0600 03/12/17 0600 Lab Results Laboratory Tests Test 03/12/17 06:00 White Blood Count 6.2 TH/MM3 Red Blood Count 2.97 MIL/MM3 Hemoglobin 8.3 GM/DL Hematocrit 25.0 % Mean Corpuscular Volume 84.2 FL Mean Corpuscular Hemoglobin 28.1 PG Mean Corpuscular Hemoglobin 33.4 % Concent Red Cell Distribution Width 17.3 % Platelet Count 142 TH/MM3 Mean Platelet Volume 9.5 FL Sodium Level 140 MEQ/L Potassium Level 3.7 MEQ/L Chloride Level 105 MEQ/L Carbon Dioxide Level 29.8 MEQ/L Anion Gap 5 MEQ/L Blood Urea Nitrogen 11 MG/DL Creatinine 0.82 MG/DL Estimat Glomerular Filtration 69 ML/MIN Rate Random Glucose 85 MG/DL Calcium Level 8.2 MG/DL Physical Exam General General Appearance: Well Developed, Well Nourished, No Acute Distress, Comfortable Eyes Eye Exam: Pupils Equal, Pupils Reactive Ears & Nose Ears & Nose Exam: Nasal Mucosa [place] Throat Throat Exam: Oral Mucosa [place] & Moist Neck Neck Exam: Neck Supple, Trachea Midline Pulmonary Resp Exam: Clear Bilaterally, No Distress Cardiology CV Exam: Regular Gastrointestinal/Abdomen GI Exam: Soft, Non-Tender, Bowel Sounds Present, Non-Distended Musculoskeletal MS Remarks Left lower extremity in clean dry dressing Integumentary Skin Exam: Warm, Dry Extremeties Extremities Exam: No Edema, Pedal Pulses Palpable Neurologic Neuro Exam: Alert, Awake, Oriented, Speech Clear, Sulfur Chloride Operator Equal Psychiatric Psych Exam: Appropriate Responses Assessment/Plan Assessment/Plan Assessment End-stage left hip osteoarthritis s/p left total hip arthroplasty this admission Lightheadedness when standing Hypokalemia, resolved Hx on PE was on Xarelto Hx Asthma hx ovarian cancer History of bladder spasm, not active at this time Plan She was advised to pace herself Have a glass of water while sitting before standing Pain control Physical therapy Nausea control Wound care per orthopedics Bowel regimen Could be discharged from medical standpoint Discussed with patient Discussed with nurse Discussed Condition with: Patient Anthony Klein MD Mar 12, 2017 11:31
[2017-03-12 12:00] VITALS: BP 101/52; PULSE 73; RESP 16; TEMP 97.4; O2SAT 95
--- NOTE | 2017-03-16 11:40 | MD ---
cc: ANTONIO LOUIE M.D. ADMISSION DATE: 03/09/2017 DISCHARGE DATE: 03/12/2017 ADMISSION DIAGNOSIS Severe degenerative osteoarthritis left hip. DISCHARGE DIAGNOSIS Severe degenerative osteoarthritis left hip. HISTORY OF PRESENT ILLNESS Mrs. Willett is a 71-year-old female who presented to the [facility] for evaluation by Dr. Antonio Louie regarding her progressive left hip pain. The patient states the pain has been bothering her for many, many months and is currently inhibiting her activities of daily living. She states it is a severe, constant aching sensation aggravated by weightbearing activities. At this point in time she has no alleviating factors, although in the past she has tried medications, assistive devices, physical therapy, home exercise program without relief of symptoms. She does have x-ray evidence of severe degenerative osteoarthritis of the left hip. While in the office the patient was counseled on her diagnosis and treatment options. The risks, benefits and indications were discussed in great detail. The patient did elect to proceed with surgical intervention to include a left total hip arthroplasty. DATE OF SURGERY 03/09/2017 OPERATIVE PROCEDURE Left total hip arthroplasty, anterior approach. POSTOP After surgery the patient was admitted to [facility] where she received appropriate medical management, pain control, DVT prophylaxis as well as physical therapy. DISCHARGE Once being discharged from the hospital the patient is cleared to go home where she will receive home health care and home physical therapy. She is in stable condition. DISCHARGE INSTRUCTIONS She may weight-bear as tolerated with anterior hip precautions. DISCHARGE MEDICATIONS She has been provided prescriptions for pain control as well as DVT prophylaxis medication. FOLLOWUP She has also been provided a follow-up appointment in approximately two weeks from her date of her surgery. The patient has asked appropriate questions which have been answered. The patient is cleared for discharged. Dictated by: Claus Caraballo PA-C MD MAYLIN Granados/KIRBY /7:51 AM /11:43 AM
== END 2017-03-12 16:13 | disposition home health service (06) | DRG 470 ==
LOC: HSDI 03-09 05:05 → N06B 03-09 10:49
PROVIDERS: ADMIT Orthopaedic Surgery Sports Medicine; ATTEND Orthopaedic Surgery Sports Medicine
PROC: 0SRB04A Replacement of Left Hip Joint with Ceramic on Polyethylene Synthetic Substitute, Uncemented, Open Approach (ICD-10-PCS; principal; 2017-03-09 06:46)
DX: M16.12 Unilateral primary osteoarthritis, left hip (principal); M87.852 Other osteonecrosis, left femur; E87.6 Hypokalemia; J45.909 Unspecified asthma, uncomplicated; M81.0 Age-related osteoporosis without current pathological fracture; R42 Dizziness and giddiness; R11.10 Vomiting, unspecified; Z85.43 Personal history of malignant neoplasm of ovary; Z86.711 Personal history of pulmonary embolism; Z87.891 Personal history of nicotine dependence
CPT/HCPCS: 73502; 76000; 80048; 83735; 84100; 85025; 85027; 86850; 86900; 86901; 94150; C1776; C9290; J0131; J0690; J1100; J1580; J2250; J2405; J3370; J7030; J7050; J7120

== ENCOUNTER → 2017-02-20 | Outpatient (CLI) | payer MEDICARE ==
[~2017-02-20] MED LIST changes: +ALLE60TA PO; +COLA100C PO; +DOXY50 PO; +LACTCAP8 PO; +LEVO1TAB50 PO
[2017-02-20 09:57] LABS: AUTOMATED NEUTROPHIL # 3.1 TH/MM3 (1.8-7.7); BASOPHIL % 0.6 % (0.0-2.0); EOSINOPHIL # 0.1 TH/MM3 (0-0.4); EOSINOPHIL % 2.5 % (0.0-4.0); HEMATOCRIT 34.3 % (35.0-46.0); HEMO FLAGS DIFF FINAL; LYMPH % 17.9 % (9.0-44.0); LYMPHOCYTE # 0.8 TH/MM3 (1.0-4.8); MEAN CELL VOLUME 84.4 FL (80.0-100.0); MEAN CORPUSCULAR HEMOGLOBIN 27.6 PG (27.0-34.0); MEAN CORPUSCULAR HGB CONC 32.7 % (32.0-36.0); PLATELET COUNT 192 TH/MM3 (150-450); RED BLOOD COUNT 4.07 MIL/MM3 (4.00-5.30); RED CELL DISTRIBUTION WIDTH 16.9 % (11.6-17.2); WHITE BLOOD COUNT 4.4 TH/MM3 (4.0-11.0)
[2017-02-20 10:05] LABS: APTT (PATIENT) 24.2 SEC (24.3-30.1); PROTHROMBIN TIME - PATIENT 10.7 SEC (9.8-11.6)
[2017-02-20 10:15] LABS: ALT (GPT) 20 U/L (10-53); ANION GAP 6 MEQ/L (5-15); AST (GOT) 15 U/L (15-37); BICARBONATE 29.4 MEQ/L (21.0-32.0); BLOOD UREA NITROGEN 24 MG/DL (7-18); CHLORIDE 106 MEQ/L (98-107); GLOMERULAR FILTRATION RATE 48 ML/MIN (>89); GLUCOSE,FASTING 88 MG/DL (74-99); POTASSIUM 4.2 MEQ/L (3.5-5.1); SODIUM (NA) 141 MEQ/L (136-145)
[2017-02-20 10:16] LABS: ALKALINE PHOSPHATASE 119 U/L (45-117); TOTAL BILIRUBIN ADULT 0.6 MG/DL (0.2-1.0); WESTERGREN SEDIMENTATION RATE 39 mm/hr (0-30)
[2017-02-20 10:26] LABS: BLOOD, URINE TRACE (NEG); COMMENT (UR) CULTURE INDICATED; CULTURE IF INDICATED CULTURE INDICATED; GLUCOSE,URINE NEG (NEG); HYALINE CAST, URINE 3 /lpf (RARE); KETONE, URINE NEG (NEG); NITRITE,URINE NEG (NEG); PH, URINE 5.5 (5.0-8.5); SQUAMOUS EPITHELIAL CELL URINE 1 /hpf (0-5); URINE COLOR YELLOW (YELLW/STRAW)
--- NOTE | 2017-02-20 12:23 | RADRPT ---
EXAM DATE/TIME: 02/20/2017 11:54 [facility] COMPARISON: CHEST SINGLE AP, August 04, 2013, 16:38. INDICATIONS : Evaluate for pneumonia, pneumothorax or communicable disease. Pre op left hip replacement. MEDICAL HISTORY : ovarian ca, chemotherapy, radiation, blood clot left lung SURGICAL HISTORY : infusaport ENCOUNTER: Initial ACUITY: 1 day PAIN SCORE: 0/10 LOCATION: Bilateral chest FINDINGS: The heart is normal in size. The mediastinal contours are within normal limits. There is an Infuse-a- Port in good position. The lungs appear stable compared to previous date 08/04/13. The visualized bony structures are grossly intact. CONCLUSION: 1. No acute findings identified. Trever Coyne MD on February 20, 2017 at 12:20 Board Certified Radiologist. This report was verified electronically.
--- NOTE | 2017-02-20 22:20 | EKG ---
Date Performed: 02/20/2017 Time Performed: 09:52:27 PTAGE: 71 years EKG: Sinus rhythm NORMAL ECG PREVIOUS TRACING : 08/04/2013 15.26 DOCTOR: Estuardo York Interpretating Date/Time 02/20/2017 22:18:39
== END ==
LOC: CPRE 09:19
PROVIDERS: ATTEND Orthopaedic Surgery Sports Medicine
DX: Z01.812 Encounter for preprocedural laboratory examination (principal); Z01.811 Encounter for preprocedural respiratory examination; Z01.810 Encounter for preprocedural cardiovascular examination; M16.11 Unilateral primary osteoarthritis, right hip; M25.50 Pain in unspecified joint; N39.0 Urinary tract infection, site not specified; B95.1 Streptococcus, group B, as the cause of diseases classified elsewhere; Z79.01 Long term (current) use of anticoagulants; Z96.60 Presence of unspecified orthopedic joint implant
CPT/HCPCS: 36415; 71020; 80053; 81001; 85025; 85610; 85652; 85730; 86403; 87086; 93005